=== PATIENT | female | born 1955 | race Caucasian/White ===

== ENCOUNTER 2016-10-11 11:09 | Day surgery (SDC) | payer BC, OTHER ==
[~2016-10-11 11:09] MED LIST: PROPOFOL INJ 200 MG/20 ML VIAL IV ONE
[2016-10-11] MEDS ORDERED: PROPOFOL INJ 200 MG/20 ML VIAL IV ONE (12:11)
[2016-10-11 13:17] VITALS: BP 143/74
--- NOTE | 2016-10-11 13:34 | Operative Report ---
Operative Report DATE OF SURGERY: 10/11/16 Operative Report: The risks benefits and alternatives of the procedure explained to the patient in detail and informed consent is obtained that GIF Olympus video scope was inserted into the patient's mouth and hypopharynx the esophagus is identified intubated and insufflated the scope was then advanced through the esophagus stomach and duodenum retroflexion maneuver is done the esophagus stomach and first and second portions of the duodenum examined PREOPERATIVE DIAGNOSIS: Gastroesophageal reflux disease, nausea, dyspepsia POSTOPERATIVE DIAGNOSIS: Possible Etelvina esophagitis status post brushing. Hiatal hernia. Gastritis status post biopsy rule out Helicobacter pylori. Benign gastric polyps, likely fundic gland polyps. OPERATION: EGD with biopsy SURGEON: AMARJIT SORIANO ANESTHESIA: LMAC TISSUE REMOVED OR ALTERED: Gastric specimen obtained as noted above COMPLICATIONS: None. ESTIMATED BLOOD LOSS: none. INTRAOPERATIVE FINDINGS: Normal esophagus. Brushings obtained for white plaque that's present rule out Etelvina esophagitis. No strictures noted. Gastritis is noted. Gastric polyps likely fundic gland polyps. Normal duodenum PROCEDURE: Patient tolerated the procedure well. No immediate postprocedure complications are noted. Patient is discharged in good condition. Discharge date 10/11/2016. Discharge diet: Regular. Discharge activity: Regular. 2-3 week follow-up to discuss findings. We'll await on biopsies. Patient is instructed to call the office or proceed to the emergency room should there be any further problems or questions.
== END 2016-10-11 13:25 | disposition home or self-care (01) ==
LOC: END 11:09
PROVIDERS: ATTEND Internal Medicine Gastroenterology
PROC: 0DB68ZX Excision of Stomach, Via Natural or Artificial Opening Endoscopic, Diagnostic (ICD-10-PCS; principal; 2016-10-11 11:30)
DX: K21.9 Gastro-esophageal reflux disease without esophagitis (principal); K29.50 Unspecified chronic gastritis without bleeding; K44.9 Diaphragmatic hernia without obstruction or gangrene; Z88.5 Allergy status to narcotic agent; E66.9 Obesity, unspecified; Z68.30 Body mass index [BMI] 30.0-30.9, adult; Z79.899 Other long term (current) drug therapy
CPT/HCPCS: 43239; 87101; 88342 ×2; 88305 ×2; J2704; 43235; 740

== ENCOUNTER 2016-10-26 14:39 | Emergency (ER) | payer BC ==
[2016-10-26] MEDS ORDERED: METOCLOPRAMIDE HCL INJ/PF 10 MG/2 ML SDV IV ONE (15:10)
[2016-10-26] MEDS ORDERED: NORMAL SALINE 1000 ML 1,000 ML IV PRN (15:10)
[2016-10-26] MEDS ORDERED: DIPHENHYDRAMINE HCL 50 MG/ML VIAL IV ONE (15:10)
--- NOTE | 2016-10-26 15:11 | ER Document Report ---
ED Medical Screen (RME) - General Chief Complaint: Nausea Stated Complaint: STOMACH PROBLEM Time seen by provider: 15:11 Mode of Arrival: Ambulatory Information source: Patient Notes: This is a 61-year-old female that presents to the emergency room with multiple episodes of vomiting. Patient has had a recent GI workup with Dr. Cm and was actually sent from his office because of persistent vomiting. Dr Cm states that the pathology of the EGD revealed some maite. He did say that he saw some as well during the scope so he she may have esophageal candidiasis. (rec: Nystatin swish and swallow). TRAVEL OUTSIDE OF THE [place] IN LAST 30 DAYS: No - Related Data Allergies/Adverse Reactions: codeine Allergy (Verified 10/26/16 15:05) N/V Past Medical History - Past Medical History Cardiac Medical History: Denies: Hx Coronary Artery Disease, Hx Heart Attack, Hx Hypertension Pulmonary Medical History: Denies: Hx Asthma, Hx Bronchitis Neurological Medical History: Denies: Hx Seizures Renal/ Medical History: Denies: Hx Peritoneal Dialysis Musculoskeltal Medical History: Denies Hx Arthritis - Immunizations Hx Diphtheria, Pertussis, Tetanus Vaccination: Yes Physical Exam - Vital signs Vitals: Temp Pulse Resp BP Pulse Ox 98.3 F 84 16 136/72 H 100 10/26/16 14:51 10/26/16 14:51 10/26/16 14:51 10/26/16 14:51 10/26/16 14:51 Course - Vital Signs Vital signs: Temp Pulse Resp BP Pulse Ox 98.3 F 84 16 136/72 H 100 10/26/16 14:51 10/26/16 14:51 10/26/16 14:51 10/26/16 14:51 10/26/16 14:51
[2016-10-26 15:55] LABS: ABSOLUTE BASOPHILS # (AUTO) 0.1 10^3/uL (0.0-0.2); ABSOLUTE EOSINOPHILS # (AUTO) 0.1 10^3/uL (0.0-0.6); ABSOLUTE LYMPHOCYTES (AUTO) 0.9 10^3/uL (0.5-4.7); ABSOLUTE MONOCYTES (AUTO) 0.5 10^3/uL (0.1-1.4); ABSOLUTE NEUT (AUTO) 5.5 10^3/uL (1.7-8.2); EOSINOPHILS % (AUTO) 0.8 % (0-6); HEMOGLOBIN 15.1 g/dL (12.0-15.5); HGB HCT DIFFERENCE 1.3; LYMPHOCYTES % (AUTO) 13.3 % (13-45); MEAN CORPUSCULAR HEMOGLOBIN 29.1 pg (27.0-33.4); MEAN CORPUSCULAR HGB CONC 34.4 g/dL (32.0-36.0); MEAN CORPUSCULAR VOLUME 85 fl (80-97); MONOCYTES % (AUTO) 6.5 % (3-13); RED BLOOD COUNT 5.18 10^6/uL (3.72-5.28); RED CELL DISTRIBUTION WIDTH 14.6 % (11.5-14.0); SEGMENTED NEUTROPHILS % (AUTO) 78.4 % (42-78)
[2016-10-26 16:02] LABS: PROTHROMBIN TIME 12.6 SEC (11.4-15.4)
[2016-10-26 16:22] LABS: ALANINE AMINOTRANSFERASE 26 U/L (9-52); ALBUMIN 4.6 g/dL (3.5-5.0); ALKALINE PHOSPHATASE 101 U/L (38-126); ANION GAP 15 (5-19); ASPARTATE AMINO TRANSFERASE 20 U/L (14-36); BILIRUBIN,DIRECT 0.3 mg/dL (0.0-0.4); BILIRUBIN,TOTAL 0.9 mg/dL (0.2-1.3); BLOOD UREA NITROGEN 14 mg/dL (7-20); CALCIUM 10.4 mg/dL (8.4-10.2); CARBON DIOXIDE 23 mmol/L (22-30); CHLORIDE 103 mmol/L (98-107); CREATINE KINASE 66 U/L (30-135); CREATININE RESULT 0.86 mg/dL (0.52-1.25); GLUCOSE 98 mg/dL (75-110); LIPASE 53.4 U/L (23-300); POTASSIUM 4.4 mmol/L (3.6-5.0); SODIUM 140.6 mmol/L (137-145); TOTAL PROTEIN 8.1 g/dL (6.3-8.2)
[2016-10-26 16:33] LABS: CREATINE KINASE MB 0.89 ng/mL (<4.55)
[2016-10-26 16:34] LABS: TROPONIN I < 0.012 ng/mL
--- NOTE | 2016-10-26 18:39 | ER Document Report ---
ED General - General Chief Complaint: Nausea Stated Complaint: STOMACH PROBLEM Mode of Arrival: Ambulatory Information source: Patient Notes: 61-year-old female presents with complaints of intermittent fevers nausea. Patient admits to having 5 days worth of this episode in June and then another 5 days worth in July, patient does not actually take her temperature notes she feels hot and cold. 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 Sent in for evaluation. TRAVEL OUTSIDE OF THE [place] IN LAST 30 DAYS: No - HPI Onset: Other Onset/Duration: Intermittent Quality of pain: No pain Severity: Mild Pain Level: Denies Associated symptoms: Nausea, Weakness Exacerbated by: Denies Relieved by: Denies Similar symptoms previously: Yes Recently seen / treated by doctor: Yes - Related Data Allergies/Adverse Reactions: codeine Allergy (Verified 10/26/16 15:05) N/V Past Medical History - General Information source: Patient - Social History Smoking Status: Never Smoker Cigarette use (# per day): No Chew tobacco use (# tins/day): No Smoking Education Provided: No Family History: Reviewed & Not Pertinent Patient has suicidal ideation: No Patient has homicidal ideation: No - Past Medical History Cardiac Medical History: Denies: Hx Coronary Artery Disease, Hx Heart Attack, Hx Hypertension Pulmonary Medical History: Denies: Hx Asthma, Hx Bronchitis Neurological Medical History: Denies: Hx Seizures Renal/ Medical History: Denies: Hx Peritoneal Dialysis Musculoskeltal Medical History: Denies Hx Arthritis - Immunizations Hx Diphtheria, Pertussis, Tetanus Vaccination: Yes Review of Systems - Review of Systems Notes: REVIEW OF SYSTEMS: CONSTITUTIONAL : Denies fever, chills, or sweats. Denies recent illness. EENT: Denies eye, ear, throat, or mouth pain or symptoms. Denies nasal or sinus congestion or discharge. Denies throat, tongue, or mouth swelling or difficulty swallowing. CARDIOVASCULAR: Denies chest pain. Denies palpitations or racing or irregular heart beat. Denies ankle edema. RESPIRATORY: Denies cough, cold, or chest congestion. Denies shortness of breath, difficulty breathing, or wheezing. GASTROINTESTINAL: Admits to nausea GENITOURINARY: Denies difficulty urinating, painful urination, burning, frequency, blood in urine, or discharge. FEMALE GENITOURINARY: Denies vaginal bleeding, heavy or abnormal periods, irregular periods. Denies vaginal discharge or odor. MUSCULOSKELETAL: Denies back or neck pain or stiffness. Denies joint pain or swelling. SKIN: Denies rash, lesions or sores. HEMATOLOGIC : Denies easy bruising or bleeding. LYMPHATIC: Denies swollen, enlarged glands. NEUROLOGICAL: Denies confusion or altered mental status. Denies passing out or loss of consciousness. Denies dizziness or lightheadedness. Denies headache. Denies weakness or paralysis or loss of use of either side. Denies problems with gait or speech. Denies sensory loss, numbness, or tingling. Denies seizures. PSYCHIATRIC: Denies anxiety or stress. Denies depression, suicidal ideation, or homicidal ideation. ALL OTHER SYSTEMS REVIEWED AND NEGATIVE. Dictation was performed using [employer] voice recognition software PHYSICAL EXAMINATION: GENERAL: Well-appearing, well-nourished and in no acute distress. HEAD: Atraumatic, normocephalic. EYES: Pupils equal round and reactive to light, extraocular movements intact, conjunctiva are normal. ENT: Nares patent, oropharynx clear without exudates. Moist mucous membranes. NECK: Normal range of motion, supple without lymphadenopathy LUNGS: Breath sounds clear to auscultation bilaterally and equal. No wheezes rales or rhonchi. HEART: Regular rate and rhythm without murmurs ABDOMEN: Soft, nontender, nondistended abdomen. No guarding, no rebound. No masses appreciated. Female : deferred Musculoskeletal: Normal range of motion, no pitting or edema. No cyanosis. NEUROLOGICAL: Cranial nerves grossly intact. Normal speech, normal gait. Normal sensory, motor exams PSYCH: Normal mood, normal affect. SKIN: Warm, Dry, normal turgor, no rashes or lesions noted. Physical Exam - Vital signs Vitals: Temp Pulse Resp BP Pulse Ox 98.3 F 84 16 136/72 H 100 10/26/16 14:51 10/26/16 14:51 10/26/16 14:51 10/26/16 14:51 10/26/16 14:51 Course - Re-evaluation Re-evalutation: 10/26/16 18:34 Laboratory notes no significant abnormality patient vital signs are stable she looks well. Patient will be treated for the candidiasis, will be given nausea control, and will be given hematology follow-up for fevers of unknown origin Patient has no specific complaints no pain anywhere After performing a Medical Screening Examination, I estimate there is LOW risk for ACUTE APPENDICITIS, BOWEL OBSTRUCTION, ACUTE CHOLECYSTITIS, PERFORATED DIVERTICULITIS, INCARCERATED HERNIA, PANCREATITIS, PELVIC INFLAMMATORY DISEASE, PERFORATED ULCER, ECTOPIC , or TUBO-OVARIAN ABSCESS, thus I consider the discharge disposition reasonable. Also, there is no evidence or peritonitis , sepsis, or toxicity. I have reevaluated this patient multiple times and no significant life threatening changes are noted. The patient and I have discussed the diagnosis and risks, and we agree with discharging home with close follow-up with the understanding that symptoms and presentations can change. We also discussed returning to the Emergency Department immediately if new or worsening symptoms occur. We have discussed the symptoms which are most concerning (e.g., bloody stool, fever, changing or worsening pain, vomiting) that necessitate immediate return. - Vital Signs Vital signs: Temp Pulse Resp BP Pulse Ox 98.3 F 84 16 136/72 H 100 10/26/16 14:51 10/26/16 14:51 10/26/16 14:51 10/26/16 14:51 10/26/16 14:51 - Laboratory Result Diagrams: 10/26/16 15:35 10/26/16 15:35 Laboratory results interpreted by me: 10/26/16 10/26/16 15:35 15:35 RDW 14.6 H Seg Neutrophils % 78.4 H Calcium 10.4 H Discharge - Discharge Clinical Impression: Fever and chills, Nausea, Esophageal candidiasis Condition: Stable Disposition: HOME, SELF-CARE Instructions: Fever ([facility]) Prescriptions: Nystatin [Mycostatin 500,000 Unit/5 ml Susp Udcup] 500,000 unit PO QID 14 Days Promethazine HCl [Phenergan 25 mg Tablet] 1 - 2 tab PO Q6H PRN #15 tablet PRN Reason: Referrals: AMARJIT SORIANO MD [Primary Care Provider] - Follow up as needed MIKE CERVANTES MD [ACTIVE STAFF] - Follow up tomorrow
[2016-10-26 18:56] VITALS: BP 132/70
--- NOTE | 2016-10-26 19:07 | EKG REPORT ---
SEVERITY:- ABNORMAL ECG - SINUS RHYTHM LVH BY VOLTAGE CONSIDER ANTERIOR INFARCT LA ABNORMALITY. : Confirmed by: Efren Tucker MD 26-Oct-2016 19:06:17
== END 2016-10-26 18:55 | disposition home or self-care (01) ==
LOC: ER 14:39
DX: B37.81 Candidal esophagitis (principal); R50.9 Fever, unspecified; R11.0 Nausea; R53.1 Weakness; Z88.5 Allergy status to narcotic agent
CPT/HCPCS: 93005; 99284; 96361; 96374; 96375; 36415; 82553; 82550; 83690; 85025; 85610; 80053; 84484; 74022; 93010; J1200; J2765; J7030

== ENCOUNTER 2016-11-08 09:35 | Day surgery (SDC) | payer BC ==
[2016-11-08 12:11] VITALS: BP 114/64
--- NOTE | 2016-11-08 14:31 | Operative Report ---
Operative Report DATE OF SURGERY: 11/08/16 Operative Report: The risks, benefits and alternatives of the procedure including risks of bleeding, perforation requiring surgery are explained to the patient detail and informed consent is obtained. Patient is taken back to the endoscopy suite and placed in the left, lateral decubital position. A rectal examination was done which did not reveal any masses, tears or fissures. Timeout is called. Propofol medications administered. An Olympus was scope is inserted patient's rectum. The scope was then gradually advanced all the way to the cecum. The cecum was identified by the usual anatomical landmarks including the ileocecal valve as well as the appendiceal office. Photodocumentation was obtained. The scope was then sequentially pulled back via the rest segments of the colon including the ascending colon, hepatic flexure, transverse colon, splenic flexure, descending colon and finally into the rectosigmoid portions of the colon. Retroflexion maneuvers performed. Prep is very poor. Solid fecal material was present. PREOPERATIVE DIAGNOSIS: Personal history of polyps. Change of bowel habits POSTOPERATIVE DIAGNOSIS: Internal hemorrhoids. Random biopsies obtained OPERATION: Colonoscopy with biopsy SURGEON: AMARJIT SORIANO ANESTHESIA: LMAC TISSUE REMOVED OR ALTERED: Colon mucosal specimen obtained COMPLICATIONS: None. ESTIMATED BLOOD LOSS: none. INTRAOPERATIVE FINDINGS: Prep is very poor, solid fecal material still present, good visualization cannot be done, we'll need to have alternative prep and reschedule procedure PROCEDURE: Patient tolerated procedure well No immediate postprocedure complications are noted. Patient is discharged in good condition. Discharge date 11/08/2016. Discharge diet: Regular. Discharge activity: Regular. We'll reschedule colonoscopy with better prep Patient is instructed to call the office or proceed to the emergency room should there be any further polyps or questions. We'll await on biopsies.
== END 2016-11-08 11:55 | disposition home or self-care (01) ==
LOC: END 09:35
PROVIDERS: ATTEND Internal Medicine Gastroenterology
PROC: 0DBF8ZX Excision of Right Large Intestine, Via Natural or Artificial Opening Endoscopic, Diagnostic (ICD-10-PCS; principal; 2016-11-08 12:30)
DX: K64.8 Other hemorrhoids (principal); Z86.010 Personal history of colon polyps; R19.4 Change in bowel habit; K21.9 Gastro-esophageal reflux disease without esophagitis; E66.9 Obesity, unspecified; F90.0 Attention-deficit hyperactivity disorder, predominantly inattentive type; F32.9 Major depressive disorder, single episode, unspecified; F43.20 Adjustment disorder, unspecified; J30.2 Other seasonal allergic rhinitis; Z88.5 Allergy status to narcotic agent; Z79.899 Other long term (current) drug therapy; Z68.30 Body mass index [BMI] 30.0-30.9, adult
CPT/HCPCS: 45380; 88305 ×2; J2704; 810

== ENCOUNTER 2016-11-15 06:53 | Day surgery (SDC) | payer BC ==
[2016-11-15] MEDS ORDERED: PROPOFOL INJ 200 MG/20 ML VIAL IV ONE (07:22)
[2016-11-15 08:57] VITALS: BP 131/72
--- NOTE | 2016-11-15 13:44 | Operative Report ---
Operative Report DATE OF SURGERY: 11/15/16 Operative Report: The risks, benefits and alternatives of the procedure including risks of bleeding, perforation requiring surgery are explained to the patient detail and informed consent was obtained. Patient was taken back to the endoscopy suite and placed in the left, lateral decubital position. Timeout was called. Propofol medications administered. A rectal examination was done which did not reveal any masses, tears or fissures. An Olympus spelled scope was inserted in the patient's rectum. It is gradually advanced all the way to the cecum. The cecum was identified by the usual anatomical landmarks of the ileocecal valve as well as the appendiceal office. Photodocumentation is obtained. Prep is much better at this time. A previous attempted colonoscopy could not be completed because of the prep approximately a week ago. The scope was then carefully withdrawn from the area of the cecum including the ascending colon, hepatic flexure, transverse colon, descending colon, sigmoid colon and finding to the rectosigmoid portions of the colon. Retroflexion maneuver was performed. PREOPERATIVE DIAGNOSIS: Chronic constipation, change in bowel habits POSTOPERATIVE DIAGNOSIS: Right side colon inflammation status post biopsy. Internal hemorrhoids OPERATION: Colonoscopy with biopsy SURGEON: AMARJIT SORIANO ANESTHESIA: Moderate Sedation TISSUE REMOVED OR ALTERED: As described above COMPLICATIONS: None. ESTIMATED BLOOD LOSS: None. INTRAOPERATIVE FINDINGS: As described above. PROCEDURE: Patient tolerated procedure well. No immediate postprocedure complications are noted. Patient discharged in good condition. Discharge date 11/15/2016. Discharge diet: Regular. Discharge activity: Regular. 2-3 week follow-up to discuss findings. Patient is instructed to call the office or proceed to the emergency room should there be any further problems or questions. We will wait on pathology.
== END 2016-11-15 08:54 | disposition home or self-care (01) ==
LOC: END 06:53
PROVIDERS: ATTEND Internal Medicine Gastroenterology
PROC: 0DBF8ZX Excision of Right Large Intestine, Via Natural or Artificial Opening Endoscopic, Diagnostic (ICD-10-PCS; principal; 2016-11-15 08:30)
DX: K63.5 Polyp of colon (principal); K52.9 Noninfective gastroenteritis and colitis, unspecified; K64.8 Other hemorrhoids; E66.9 Obesity, unspecified; Z79.899 Other long term (current) drug therapy; Z79.1 Long term (current) use of non-steroidal anti-inflammatories (NSAID); Z88.5 Allergy status to narcotic agent; Z68.30 Body mass index [BMI] 30.0-30.9, adult
CPT/HCPCS: 45380; 88305 ×2; J2704; 810

== ENCOUNTER → 2016-11-18 | Outpatient (CLI) | payer BC ==
--- NOTE | 2016-11-18 12:17 | RADIOLOGY REPORT (SQ) ---
EXAM DESCRIPTION: CT ABD/PELVIS WITH IV ORAL COMPLETED DATE/TIME: 11/18/2016 9:26 am REASON FOR STUDY: ABD AND PELVIC PAIN R10.9 UNSPECIFIED ABDOMINAL PAIN COMPARISON: None. TECHNIQUE: CT scan of the abdomen and pelvis performed using helical scanning technique with dynamic intravenous contrast injection. Oral contrast. Images reviewed with lung, soft tissue, and bone win dows. Reconstructed coronal and sagittal MPR images reviewed. Delayed images for evaluation of the ur inary system also acquired. All images stored on PACS. All CT scanners at this facility use dose modulation, iterative reconstruction, and/or weight based d osing when appropriate to reduce radiation dose to as low as reasonably achievable (ALARA). [facility]: Dose Right [facility]: CareDose [facility]: Dose Right [facility]: Teradose 4D [facility]: [employer]ni [employer] CONTRAST TYPE AND DOSE: 85mL Isovue 370- low osmolar. RENAL FUNCTION: Creatinine 1.0 BUN 9 RADIATION DOSE: 19.30mGy. LIMITATIONS: None. FINDINGS: LOWER CHEST: Prominent hiatal hernia. No other significant findings. No nodules or infilt rates. LIVER: Normal size. No masses or dilated ducts. SPLEEN: Normal size. No focal lesions. PANCREAS: No masses. No significant calcifications. No adjacent inflammation or peripancreatic fluid collections. Pancreatic duct not dilated. GALLBLADDER: No identified stones by CT criteria. No inflammatory changes to suggest cholecystitis. ADRENAL GLANDS: No significant masses or asymmetry. RIGHT KIDNEY AND URETER: No solid masses. No significant calcifications. No hydronephrosis or hyd roureter. LEFT KIDNEY AND URETER: No solid masses. No significant calcifications. No hydronephrosis or hydr oureter. AORTA AND VESSELS: No aneurysm. No dissection. Renal arteries, SMA, celiac without stenosis. RETROPERITONEUM: No retroperitoneal adenopathy, hemorrhage or masses. BOWEL AND PERITONEAL CAVITY: No masses or inflammatory changes. No free fluid or peritoneal masses. APPENDIX: Normal. PELVIS: No mass or free fluid. Normal bladder. ABDOMINAL WALL: No masses. No hernias. BONES: No significant or acute findings. OTHER: No other significant finding. IMPRESSION: 1. Hiatal hernia. 2. No abnormality is seen in the abdomen or pelvis. There are no findings that explain the patient' s pain. TECHNICAL DOCUMENTATION: JOB ID: [id number] Quality ID # [id number]: Final reports with documentation of one or more dose reduction techniques (e.g., Au tomated exposure control, adjustment of the mA and/or kV according to patient size, use of iterative reconstruction technique) 2010 [employer]- All Rights Reserved
== END ==
LOC: RAD 08:30
PROVIDERS: ATTEND Internal Medicine Medical Oncology
DX: R10.9 Unspecified abdominal pain (principal); R10.2 Pelvic and perineal pain
CPT/HCPCS: 74177

== ENCOUNTER → 2017-03-31 | Outpatient (CLI) | payer BC ==
--- NOTE | 2017-04-01 16:46 | WOMENS IMAGING REPORT ---
EXAM DESCRIPTION: 3D SCREENING MAMMO BILAT COMPLETED DATE/TIME: 03/31/2017 7:53 am REASON FOR STUDY: SCREENING MAMMO Z12.31 ENCNTR SCREEN MAMMOGRAM FOR MALIGNANT NEOPLASM OF PRIYANKA COMPARISON: Multiple since 2007 TECHNIQUE: Standard craniocaudal and mediolateral oblique views of each breast recorded using digita l acquisition and breast tomosynthesis. LIMITATIONS: None. FINDINGS: No masses, calcifications or architectural distortion. No areas of suspicion. Read with the assistance of CAD. .[facility] - R2 Cenova Version 1.3 .[facility] - R2 Cenova Version 1.3 .[facility] - R2 Cenova Version 2.4 .[facility] [place] - R2 Cenova Version 2.4 .[facility] - R2 [employer] Version 9.2 IMPRESSION: NORMAL MAMMOGRAM. BIRADS 1. BREAST DENSITY: c. The breasts are heterogeneously dense, which may obscure small masses. BIRAD: 1 NEGATIVE RECOMMENDATION: ROUTINE SCREENING Please continue yearly bilateral screening tomosynthesis in March 2018. COMMENT: The patient has been notified of the results by letter per [place] requirements. Additional no tification policies are in place for contacting patient with suspicious or incomplete findings. Quality ID #[id number]: The [employer] recommends an annual screening mammogram for women aged 40 years or over. This facility utilizes a reminder system to ensure that all patients receive reminder letters, and/or direct phone calls for appointments. This includes reminders for routine scr eening mammograms, diagnostic mammograms, or other Breast Imaging Interventions when appropriate. Th is patient will be placed in the appropriate reminder system. The [employer] (ACR) has developed recommendations for screening MRI of the breast s in certain patient populations, to be used in conjunction with mammography. Breast MRI surveillanc e may be appropriate for women with more than 20% lifetime risk of developing breast cancer as deter mined by genetic testing, significant family history of the disease, or history of mantle radiation f or Hodgkins Disease. ACR Practice Guidelines 2008. DBT Technology DBT is a type of tomographic mammography. With conventional mammography, overlapping breast tissue ma y make lesions difficult to detect, even with good compression. DBT uses an x-ray tube that rotates a round the breast, taking images at different angles. These images are then combined to create thin sl ices of the breast that the radiologist can view as a 3D reconstruction. The [employer] unit can perform full-field digital mammograms (2D imaging); or DBT (3D imaging); or both, in a combination mode that quickly performs both the mammogram and the tomosynthesis scan while the breast is still compressed. PQRS 6045F: Fluoroscopic imaging is not utilized for breast tomosynthesis. TECHNICAL DOCUMENTATION: FINDING NUMBER: (1) ASSESSMENT: (1) JOB ID: [id number] 2699 [employer]- All Rights Reserved
== END ==
LOC: WI 07:21
PROVIDERS: ATTEND Obstetrics & Gynecology Gynecology
DX: Z12.31 Encounter for screening mammogram for malignant neoplasm of breast (principal)
CPT/HCPCS: 77063; G0202; 77067

== ENCOUNTER 2017-05-26 10:10 | Day surgery (SDC) | payer BC ==
[2017-05-26] MEDS ORDERED: PROPOFOL INJ 200 MG/20 ML VIAL IV ONE (13:00)
[2017-05-26 14:52] VITALS: BP 154/73
--- NOTE | 2017-05-26 16:42 | Operative Report ---
Operative Report DATE OF SURGERY: 05/26/17 Operative Report: The risks benefits and alternatives of the procedure explained to the patient in detail and informed consent is obtained.A GIF Olympus video scope was inserted into the patient's mouth and hypopharynx, the esophagus is identified intubated and insufflated, the scope was then advanced through the esophagus stomach and duodenum, retroflexion maneuver is done ,the esophagus stomach and first and second portions of the duodenum examined PREOPERATIVE DIAGNOSIS: Anemia that could be due to blood loss. Gastroesophageal reflux disease POSTOPERATIVE DIAGNOSIS: Small shallow gastric ulcers, gastritis. Gastric polyp which was removed via snare polypectomy and retrieved. Duodenitis. Biopsies obtained to rule out for Helicobacter pylori OPERATION: EGD with snare polypectomy SURGEON: AMARJIT SORIANO ANESTHESIA: LMAC TISSUE REMOVED OR ALTERED: As noted above. COMPLICATIONS: None. ESTIMATED BLOOD LOSS: None. INTRAOPERATIVE FINDINGS: As described above. No significant bleeding occurring. PROCEDURE: Patient tolerated procedure well. No immediate postprocedure complications are noted. Patient is discharged in good condition. Discharge date 05/26/2017. Discharge diet: Regular. Discharge activity: Regular. 2-3 week follow-up to discuss findings. Patient is instructed call the office or proceed to the emergency room should there be any further problems or questions. I started her on oral iron therapy. Continue her PPI She has had a negative colonoscopy in the past We will refer her to hematology oncology workup for other reasons for why she could have chronic anemia
== END 2017-05-26 14:45 | disposition home or self-care (01) ==
LOC: OROUT 10:10
PROVIDERS: ATTEND Internal Medicine Gastroenterology
PROC: 0DB68ZX Excision of Stomach, Via Natural or Artificial Opening Endoscopic, Diagnostic (ICD-10-PCS; principal; 2017-05-26 13:00)
DX: D50.0 Iron deficiency anemia secondary to blood loss (chronic) (principal); K21.9 Gastro-esophageal reflux disease without esophagitis; K31.7 Polyp of stomach and duodenum; K29.80 Duodenitis without bleeding; K29.70 Gastritis, unspecified, without bleeding; K25.9 Gastric ulcer, unspecified as acute or chronic, without hemorrhage or perforation; Z79.899 Other long term (current) drug therapy
CPT/HCPCS: 43251; 88342 ×2; 88305 ×2; J2704; 740

== ENCOUNTER 2017-06-17 08:20 | Day surgery (SDC) | payer BC ==
[2017-06-17] MEDS ORDERED: PROPOFOL INJ 200 MG/20 ML VIAL IV ONE (09:54)
--- NOTE | 2017-06-17 12:32 | Operative Report ---
Operative Report DATE OF SURGERY: 06/17/17 Operative Report: The risks, benefits and alternatives of the procedure including risks of bleeding, perforation requiring surgery are explained to the patient in detail and informed consent is obtained. Patient was taken back to the operating room and placed in a left, lateral decubital position. Timeout was called. Propofol medications administered. A rectal examination is done which did not reveal any masses, tears or fissures. An Olympus videoscope was inserted into the patient's rectum. The scope was then carefully advanced all the way to the cecum. Intubation of the normal terminal ileum is done. Prep is good. Photodocumentation is obtained. Scope was then sequentially pulled back via the various segments of the colon including the ascending colon, hepatic flexure , transverse colon, splenic flexure, descending colon and finding to the rectosigmoid portions of the colon. Retroflexion maneuvers performed. PREOPERATIVE DIAGNOSIS: Chronic anemia rule out GI bleed POSTOPERATIVE DIAGNOSIS: Relatively normal colonoscopy by right side colon biopsies are taken to rule out for possible microscopic colitis as evidence for possible bleeding OPERATION: Colonoscopy with biopsy SURGEON: AMARJIT SORIANO ANESTHESIA: LMAC TISSUE REMOVED OR ALTERED: As noted above. COMPLICATIONS: None. ESTIMATED BLOOD LOSS: None. INTRAOPERATIVE FINDINGS: As described above. PROCEDURE: Patient tolerated procedure well. No immediate postprocedure complications are noted. Patient discharged in good condition. Discharge date 06/17/2017. Discharge diet: Regular. Discharge activity: Regular. 2-3 week follow-up to discuss findings. Patient is instructed to call the office or proceed to the emergency room should there be any further problems or questions. We will await pathology. Do not see any lesion in the colon is bleeding.
[2017-06-17 12:39] VITALS: BP 138/68
== END 2017-06-17 12:39 | disposition home or self-care (01) ==
LOC: OROUT 08:20
PROVIDERS: ATTEND Internal Medicine Gastroenterology
PROC: 0DBF8ZX Excision of Right Large Intestine, Via Natural or Artificial Opening Endoscopic, Diagnostic (ICD-10-PCS; principal; 2017-06-17 10:30)
DX: D50.0 Iron deficiency anemia secondary to blood loss (chronic) (principal); Z88.5 Allergy status to narcotic agent; Z88.8 Allergy status to other drugs, medicaments and biological substances
CPT/HCPCS: 45380; 88305 ×2; J2704; 810

== ENCOUNTER 2018-09-08 07:57 | Day surgery (SDC) | payer BC ==
[~2018-09-08 07:57] MED LIST changes: +MIDAZOLAM 2 MG/2 ML INJ ONE
[2018-09-08 11:09] VITALS: BP 131/72
--- NOTE | 2018-09-08 12:34 | Operative Report ---
Operative Report DATE OF SURGERY: 09/08/18 Operative Report: The risks benefits and alternatives of the procedure explained to the patient in detail and informed consent is obtained.A GIF Olympus video scope was inserted into the patient's mouth and hypopharynx, the esophagus is identified intubated and insufflated, the scope was then advanced through the esophagus stomach and duodenum, retroflexion maneuver is done, the esophagus stomach and first and second portions of the duodenum examined. PREOPERATIVE DIAGNOSIS: Possible GI bleeding, chronic anemia POSTOPERATIVE DIAGNOSIS: There is a new area of thickening at the distal EG junction status post biopsy rule out Tena's esophagus. Gastritis status post biopsy rule out Helicobacter pylori. Hiatal hernia. No evidence of source of bleed OPERATION: EGD with biopsy SURGEON: AMARJIT SORIANO ANESTHESIA: LMAC TISSUE REMOVED OR ALTERED: As noted above. COMPLICATIONS: None. ESTIMATED BLOOD LOSS: None. INTRAOPERATIVE FINDINGS: As noted above. PROCEDURE: Patient tolerated the procedure well. No immediate postprocedure complications are noted. Patient discharged in good condition. Discharge date 09/08/2018. Discharge diet: Regular. Discharge activity: Regular. 2-3-week follow-up to discuss findings. Patient is instructed to call the office or proceed to the emergency room should there be any further proximal questions. Depending on the pathology further recommendations can be made. However if there does appear to be dysplasia the question of whether she will need endoscopic ultrasound as a further workup.
== END 2018-09-08 11:00 | disposition home or self-care (01) ==
LOC: OROUT 07:57
PROVIDERS: ATTEND Internal Medicine Gastroenterology
DX: K44.9 Diaphragmatic hernia without obstruction or gangrene (principal); K29.50 Unspecified chronic gastritis without bleeding; K20.9 Esophagitis, unspecified; K92.1 Melena; D64.9 Anemia, unspecified; Z88.5 Allergy status to narcotic agent; Z88.6 Allergy status to analgesic agent
CPT/HCPCS: 43239; 88342 ×2; 88305 ×2; J2250; J2704; 731

== ENCOUNTER 2018-11-17 07:12 | Day surgery (SDC) | payer BC ==
[2018-11-17] MEDS ORDERED: PROPOFOL INJ 200 MG/20 ML VIAL IV ONE ×2 (08:08→10:11)
[2018-11-17 08:53] VITALS: BP 116/59
--- NOTE | 2018-11-17 12:24 | Operative Report ---
Operative Report DATE OF SURGERY: 11/17/18 Operative Report: The risks benefits and alternatives of the procedure explained to the patient in detail and informed consent is obtained.A GIF Olympus video scope was inserted into the patient's mouth and hypopharynx, the esophagus is identified intubated and insufflated, the scope was then advanced through the esophagus stomach and duodenum ,retroflexion maneuver is done, the esophagus stomach and first and second portions of the duodenum examined. PREOPERATIVE DIAGNOSIS: Known history of a gastric polyp previously biopsied that was negative within the hiatal hernia sac now for snare polypectomy POSTOPERATIVE DIAGNOSIS: Polyp removed via snare polypectomy and retrieved with Bolanos net. Hiatal hernia. Gastritis OPERATION: EGD with snare polypectomy SURGEON: AMARJIT SORIANO ANESTHESIA: LMAC TISSUE REMOVED OR ALTERED: As noted above. COMPLICATIONS: None. ESTIMATED BLOOD LOSS: None. INTRAOPERATIVE FINDINGS: As noted above. PROCEDURE: Patient tolerated the procedure well. No immediate postprocedure complications are noted. Patient is discharged in good condition. Discharge date 11/17/2018. Discharge diet: Regular. Discharge activity: Regular. 2 to 3-week follow-up to discuss findings. Patient is instructed to call the office or proceed to the emergency room should there be any further problems or questions. Wait on the pathology.
== END 2018-11-17 08:28 | disposition home or self-care (01) ==
LOC: END 07:12
PROVIDERS: ATTEND Internal Medicine Gastroenterology
DX: K31.7 Polyp of stomach and duodenum (principal); K44.9 Diaphragmatic hernia without obstruction or gangrene; K29.50 Unspecified chronic gastritis without bleeding; K21.9 Gastro-esophageal reflux disease without esophagitis; Z79.899 Other long term (current) drug therapy
CPT/HCPCS: 43251; 88342 ×2; 88305 ×2; J2704

== ENCOUNTER → 2018-12-08 | Outpatient (CLI) | payer BC ==
--- NOTE | 2018-12-08 11:53 | RADIOLOGY REPORT (SQ) ---
EXAM DESCRIPTION: UPPER GI/SM BOWEL COMPLETED DATE/TIME: 12/08/2018 10:44 am REASON FOR STUDY: HIATEL HERNIA K44.9 DIAPHRAGMATIC HERNIA WITHOUT OBSTRUCTION OR GANGRENE COMPARISON: None. TECHNIQUE: Under fluoroscopic guidance, patient ingested effervescent granules followed by thick an d thin barium. Fluoroscopic spot images and routine radiographic images acquired and stored on PACS . Following evaluation of esophagus and stomach, additional barium administered with serial delayed ab dominal radiographs until colonic identification. Fluoroscopic images recorded of the terminal ileu m. 12 MM BARIUM TABLET GIVEN: Yes. No significant delay in passage. FLUOROSCOPY TIME: 3 minutes of fluoroscopy was used. 21 images saved to PACS. LIMITATIONS: None. FINDINGS: NEUROMUSCULAR COORDINATION OF SWALLOW: Normal. No aspiration. ESOPHAGEAL MOTILITY: Normal peristalsis. No esophageal spasm. ESOPHAGEAL MUCOSA: Normal mucosa without masses or ulceration. GASTRO-ESOPHAGEAL JUNCTION: Large fixed hiatal hernia containing nearly the entire fundus of the stom ach. Severe free-flowing gastroesophageal reflux is seen. STOMACH: Large hiatal hernia. Normal without masses or ulcerations. GASTRIC OUTLET: No delay in emptying. Normal pylorus. DUODENAL BULB: Normal distention. No spasm or ulceration. DUODENUM: Mucosa normal. No extrinsic masses or malrotation. PROXIMAL SMALL BOWEL: Normal as visualized. JEJUNUM: Normal mucosal pattern. No dilatation, segmentation, strictures or masses. ILEUM: Normal mucosal pattern. No dilatation, segmentation, strictures or masses. TERMINAL ILEUM AND ILEO-CECAL VALVE: Normal mucosal pattern without cobble-stoning or stricture. Nor mal compression. PROXIMAL COLON: Incompletely imaged. No abnormality. NON-GI TRACT STRUCTURES: No significant finding. OTHER: Transit time is normal with contrast visualized in the colon on the 45 minutes delayed image. IMPRESSION: 1. LARGE FIXED HIATAL CONTAINING NEARLY THE ENTIRE FUNDUS OF THE STOMACH. 2. SEVERE FREE-FLOWING GASTROESOPHAGEAL REFLUX TO THE LEVEL OF THE THORACIC INLET. 3. NORMAL SMALL BOWEL FOLLOW-THROUGH. COMMENT: Quality ID [id number]: Final reports for procedures using fluoroscopy that document radiation exp osure indices, or exposure time and number of fluorographic images (if radiation exposure indices are not available) TECHNICAL DOCUMENTATION: JOB ID: [id number] [employer]- All Rights Reserved Reading location - IP/workstation name: [email or web address] [id number]
== END ==
LOC: RAD 08:55
PROVIDERS: ATTEND Surgery
DX: K44.9 Diaphragmatic hernia without obstruction or gangrene (principal); K21.9 Gastro-esophageal reflux disease without esophagitis
CPT/HCPCS: 74249

== ENCOUNTER 2019-02-22 07:47 | Observation (INO) | payer BC ==
[2019-02-15 10:11] LABS: ABSOLUTE BASOPHILS # (AUTO) 0.1 10^3/uL (0.0-0.2); ABSOLUTE EOSINOPHILS # (AUTO) 0.1 10^3/uL (0.0-0.6); ABSOLUTE LYMPHOCYTES (AUTO) 0.9 10^3/uL (0.5-4.7); ABSOLUTE MONOCYTES (AUTO) 0.4 10^3/uL (0.1-1.4); ABSOLUTE NEUT (AUTO) 2.4 10^3/uL (1.7-8.2); BASOPHILS % (AUTO) 2.3 % (0-2); HEMATOCRIT 38.4 % (36.0-47.0); HEMOGLOBIN 12.9 g/dL (12.0-15.5); LYMPHOCYTES % (AUTO) 23.9 % (13-45); MEAN CORPUSCULAR HEMOGLOBIN 29.3 pg (27.0-33.4); MEAN CORPUSCULAR HGB CONC 33.4 g/dL (32.0-36.0); MEAN CORPUSCULAR VOLUME 88 fl (80-97); MONOCYTES % (AUTO) 10.5 % (3-13); PLATELET COUNT 342 10^3/uL (150-450); RED BLOOD COUNT 4.38 10^6/uL (3.72-5.28); RED CELL DISTRIBUTION WIDTH 15.1 % (11.5-14.0); SEGMENTED NEUTROPHILS % (AUTO) 60.3 % (42-78); TOTAL CELLS COUNTED % (AUTO) 100 %
[2019-02-15 10:32] LABS: ANION GAP 7 (5-19); BLOOD UREA NITROGEN 12 mg/dL (7-20); CALCIUM 9.7 mg/dL (8.4-10.2); CARBON DIOXIDE 27 mmol/L (22-30); CHLORIDE 106 mmol/L (98-107); GLUCOSE 79 mg/dL (75-110); POTASSIUM 4.4 mmol/L (3.6-5.0)
--- NOTE | 2019-02-15 20:39 | EKG REPORT ---
SEVERITY:- OTHERWISE NORMAL ECG - SINUS RHYTHM BORDERLINE LEFT AXIS DEVIATION : Confirmed by: Alessia Centeno MD 15-Feb-2019 20:38:00
[~2019-02-22 07:47] MED LIST changes: +BUPIVACAINE HCL 0.25% /EPINEPHRINE INJ/PF 30 ML SDV ONE; +CEFAZOLIN 1 GM/D5W RTU 1 GM/50 ML RTUPB IV ONE; +CEFAZOLIN SODIUM 2 GM in DEXTROSE 5%-WATER 100 ML IV PRN; +FAMOTIDINE INJ/PF 20 MG/2 ML SDV IV ONE; +FAMOTIDINE INJ/PF 20 MG/2 ML SDV IV PRN; +LACTATED RINGERS 1000 ML IV PRN; +LIDOCAINE 0.5% INJ-PF (5 MG/ML) 50 ML SDV SUBCUT PRN; +METHYLENE BLUE 50 MG/10 ML AMPULE ONE; +METOCLOPRAMIDE HCL INJ/PF 10 MG/2 ML SDV IV PRN; +METOCLOPRAMIDE HCL INJ/PF 10 MG/2 ML SDV ONE; -MIDAZOLAM 2 MG/2 ML INJ ONE; -PROPOFOL INJ 200 MG/20 ML VIAL IV ONE; +SCOPOLAMINE HYDROBROMIDE 1.5 MG PATCH.TD72 ONE; +SCOPOLAMINE HYDROBROMIDE 1.5 MG PATCH.TD72 TD PRN
[2019-02-22] MEDS ORDERED: KETOROLAC TROMETHAMINE 60 MG/2 ML SDV ONE (08:40)
[2019-02-22] MEDS ORDERED: DEXAMETHASONE SOD PHOSPHATE INJ 4 MG/1 ML VIAL ONE (08:41)
[2019-02-22] MEDS ORDERED: ONDANSETRON HCL INJ/PF 4 MG/2 ML SDV ONE (08:41)
[2019-02-22] MEDS ORDERED: PROPOFOL INJ 200 MG/20 ML VIAL IV ONE (08:41)
[2019-02-22] MEDS ORDERED: HYDROMORPHONE HCL INJ/PF 2 MG/ML AMPULE ONE (08:41)
[2019-02-22] MEDS ORDERED: MIDAZOLAM 2 MG/2 ML INJ ONE (08:56)
[2019-02-22] MEDS ORDERED: FENTANYL CITRATE INJ/PF 100 MCG/2 ML AMPUL IV PRN ×3 (09:27)
[2019-02-22] MEDS ORDERED: OXYCODONE-ACETAMINOPHEN 5-325 MG TABLET PO PRN ×2 (09:27)
[2019-02-22] MEDS ORDERED: DIPHENHYDRAMINE HCL 50 MG/ML VIAL IV PRN (09:27)
[2019-02-22] MEDS ORDERED: MEPERIDINE HCL/PF INJ 25 MG/1 ML DISP.SYRIN IV PRN (09:27)
[2019-02-22] MEDS ORDERED: ONDANSETRON HCL INJ/PF 4 MG/2 ML SDV IV PRN ×2 (09:27→10:36)
[2019-02-22] MEDS ORDERED: MORPHINE SULFATE 10 MG/ML INJ IV PRN ×2 (09:27→10:36)
[2019-02-22] MEDS ORDERED: CEFAZOLIN INJ 1 GM VIAL ONE (09:30)
[2019-02-22] MEDS ORDERED: SUCCINYLCHOLINE CHLORIDE INJ 200 MG/10 ML VIAL ONE (09:42)
[2019-02-22] MEDS ORDERED: ROCURONIUM BROMIDE INJ 50 MG/5 ML VIAL IV ONE (09:42)
[2019-02-22] MEDS ORDERED: POTASSI CL 20 MEQ/D5-1/2NS 1L 1,000 ML IV PRN (10:36)
[2019-02-22] MEDS ORDERED: KETOROLAC TROMETHAMINE INJ/PF 30 MG/1 ML SDV IV SCH (10:45)
--- NOTE | 2019-02-22 10:52 | Operative Report ---
Nonrecallable Operative Report DATE OF SURGERY: 02/22/19 PREOPERATIVE DIAGNOSIS: hiatal hernia POSTOPERATIVE DIAGNOSIS: hiatal hernia OPERATION: lap repair of hiatal hernia, jossy fundoplication SURGEON: TRISTAN ABRAHAM 1ST [employer]ICAL DESIGNER: MYA MARTINEZ ANESTHESIA: GA TISSUE REMOVED OR ALTERED: none COMPLICATIONS: none ESTIMATED BLOOD LOSS: 10cc. INTRAOPERATIVE FINDINGS: large hiatal hernia. PROCEDURE: Patient was brought to the operating when awake alert stable condition placed in the operating table in supine position induced under general anesthesia intubated the abdomen was prepped and draped in usual sterile manner for the procedure. After appropriate timeout and site verification the varies needle was placed into the umbilicus and the abdomen was insufflated with 6 L of CO2 gas. An infraumbilical 10 mm incision was made with a 15 blade and a 10 mm port was placed in the abdominal cavity intra-abdominal visualization revealed no evidence of a varies needle or trocar injury to epigastric ports were placed under direct vision a 5 and a 12 a right and left upper quadrant 5 mm port was also placed under direct vision. Upon initial visualization the stomach was seen entering the diaphragmatic hiatus about two thirds of the stomach was trapped up in the posterior mediastinum We began our dissection of the stomach gastrocolic ligament along the mid greater curvature and continue that up along the greater curvature by the fundus to the angle of Hiss by dividing the short gastric vessels with the LigaSure device We then excised the hernia sac from the undersurface of the diaphragm and the sylvia bilaterally using the LigaSure device and we remove the sac. We were then able to reduce the stomach and mobilized the esophagus up into the posterior mediastinum and were able to bring the esophagus back down into the abdominal cavity about 6 cm of distal esophagus was allowed to drop easily into the abdominal cavity We then closed the hiatus posteriorly around the esophagus with approximately 4 [id number] placed 0 Surgidac sutures. Around the f 58 [place] bougie dilator We then passed the fundus posteriorly around the esophagus and fixed it to itself anteriorly and the esophageal wall with 3 stitches of 0 Surgidac suture placed there with a 58 [place] bougie dilator in the stomach. This created a floppy Jossy wrap was approximately 2-1/2 cm long. Once we were satisfied with good hemostasis we reduce the pneumoperitoneum closed the fascial defect with 0 Vicryl and closed all skin incisions with 4-0 Biosyn suture. Mya PUGH was present for the entire operation for help with wound retraction wound closure. Estimated blood loss was approximately 25 cc sponge needle counts were correct x2 the patient was awakened in the operating room extubated transferred recovery in stable condition no complications
[2019-02-22] MEDS: HEPARIN SOD (PORCINE) 5,000 UNIT/ML 1 ML VIAL SUBCUT SCH ×2 (13:40→21:49)
[2019-02-22] MEDS ORDERED: FAMOTIDINE INJ/PF 20 MG/2 ML SDV IV SCH (22:00)
[2019-02-23] MEDS ORDERED: KETOROLAC TROMETHAMINE INJ/PF 30 MG/1 ML SDV IV PRN (02:30)
[2019-02-23] MEDS: HEPARIN SOD (PORCINE) 5,000 UNIT/ML 1 ML VIAL SUBCUT SCH (05:44)
[2019-02-23 07:04] LABS: ABSOLUTE BASOPHILS # (AUTO) 0.1 10^3/uL (0.0-0.2); ABSOLUTE MONOCYTES (AUTO) 0.7 10^3/uL (0.1-1.4); ABSOLUTE NEUT (AUTO) 5.8 10^3/uL (1.7-8.2); BASOPHILS % (AUTO) 0.8 % (0-2); EOSINOPHILS % (AUTO) 0.1 % (0-6); HEMATOCRIT 39.6 % (36.0-47.0); HEMOGLOBIN 13.3 g/dL (12.0-15.5); LYMPHOCYTES % (AUTO) 13.7 % (13-45); MEAN CORPUSCULAR HGB CONC 33.7 g/dL (32.0-36.0); MEAN CORPUSCULAR VOLUME 89 fl (80-97); MONOCYTES % (AUTO) 8.7 % (3-13); PLATELET COUNT 306 10^3/uL (150-450); RED BLOOD COUNT 4.45 10^6/uL (3.72-5.28); SEGMENTED NEUTROPHILS % (AUTO) 76.7 % (42-78); TOTAL CELLS COUNTED % (AUTO) 100 %; WHITE BLOOD COUNT 7.5 10^3/uL (4.0-10.5)
[2019-02-23 07:23] LABS: ANION GAP 7 (5-19); BLOOD UREA NITROGEN 15 mg/dL (7-20); CALCIUM 9.7 mg/dL (8.4-10.2); CARBON DIOXIDE 27 mmol/L (22-30); CHLORIDE 104 mmol/L (98-107); GLUCOSE 107 mg/dL (75-110); POTASSIUM 4.1 mmol/L (3.6-5.0)
--- NOTE | 2019-02-23 08:03 | PDOC DISCHARGE SUMMARY ---
General - Admit/Disc Date/PCP Admission Date/Primary Care Provider: 02/22/19 15:47 JIM LEUNG NP Discharge Date: 02/23/19 - Additional Information Resuscitation Status: Full Code Discharge Diet: Full Liquids Discharge Activity: Activity As Tolerated, No Lifting Over 10 Pounds Home Medications: Bupropion HCl [Wellbutrin Xl 300mg 24hr Tablet] 1 tab PO DAILY 10/11/16 Desvenlafaxine Succinate [Pristiq ER] 1 - 2 tab PO QHS PRN 10/11/16 Gr Ricky-Orc/Sw Kristi/Sharon/Willy/Nathaniel [Oralair 300 Ir Sublingual Tab] 1 each SL ASDIR PRN 10/11/16 Levocetirizine Dihydrochloride [Xyzal 5 mg Tablet] 5 mg PO DAILY 10/11/16 Lansoprazole 15 mg PO DAILY 02/22/19 History of Present Illness History of Present Illness: KIKO OCHOA is a 64 year old female Hospital Course Hospital Course: This catheter was admitted on the day of admission for elective repair of her hiatal hernia and laparoscopic Jossy fundoplication. She had a large hiatal hernia with Donovan erosions She underwent the procedure tolerated well and had a routine benign postoperative course On postop day 1 she was tolerating full liquid diet had minimal amount of pain so wounds were clean and dry and she is ready for discharge home today She is instructed to remain on a full liquid diet for the next week and then slowly advance her to a soft diet she will be given an appointment for follow-up with me in surgery clinic 10 to 14 days She will be given Toradol 10 mg p.o. every 8 hours as needed pain Physical Exam Vital Signs: Temp Pulse Resp BP Pulse Ox 97.8 F 78 18 130/58 H 97 02/23/19 07:07 02/23/19 07:07 02/23/19 07:07 02/23/19 07:07 02/23/19 07:07 Intake & Output 02/22/19 02/23/19 02/24/19 06:59 06:59 06:59 Intake Total 1780 Output Total 1310 Balance 470 Weight 86 kg General appearance: PRESENT: no acute distress Head exam: PRESENT: normocephalic Eye exam: PRESENT: EOMI Mouth exam: PRESENT: moist Neck exam: PRESENT: full ROM Respiratory exam: PRESENT: clear to auscultation new Cardiovascular exam: PRESENT: RRR Pulses: PRESENT: +2 pedal pulses bilateral Vascular exam: PRESENT: normal capillary refill GI/Abdominal exam: PRESENT: soft Rectal exam: PRESENT: deferred Extremities exam: PRESENT: full ROM Musculoskeletal exam: PRESENT: full ROM Neurological exam: PRESENT: alert, awake, oriented to person, oriented to place Psychiatric exam: PRESENT: appropriate affect Skin exam: PRESENT: dry Results Laboratory Results: 02/23/19 06:32 02/23/19 06:32 02/22/19 02/23/19 02/23/19 09:09 06:32 06:32 WBC 7.5 RBC 4.45 Hgb 13.3 Hct 39.6 MCV 89 MCH 30.0 MCHC 33.7 RDW 15.0 H Plt Count 306 Seg Neutrophils % 76.7 Sodium 138.2 Potassium 4.1 Chloride 104 Carbon Dioxide 27 Anion Gap 7 BUN 15 Creatinine 1.03 Est GFR ( Amer) > 60 Glucose 107 Calcium 9.7 Blood Type O POSITIVE Antibody Screen NEGATIVE Qualifiers - * PATIENT BEING DISCHARGED WITH ANY OF THE FOLLOWING DIAGNOSIS: No VTE patient discharged on overlapping Therapy?: No Reason(s) for not prescribing Overlap Therapy:: Not indicated Reason(s) for not prescribing Anti-thrombolytic therapy:: Not indicated Reason(s) for not prescribing Anti-coagulation therapy:: Not indicated Reason(s) for not prescribing Statins therapy:: Not indicated Reason(s) for not prescribing Aspirin therapy:: Not indicated Reason(s) for not prescribing Statin therapy:: Not indicated Reason(s) for not prescribing ACEI/ARBS:: Not indicated Acute Heart Failure - Is this a Heart Failure Patient?: No
[2019-02-23 08:30] VITALS: BP 139/60
== END 2019-02-23 09:55 | disposition home or self-care (01) ==
LOC: OROUT 07:47 → EDSTATUS 10:00 → OROUT 12:30 → 2S 12:30
PROVIDERS: ADMIT Surgery; ATTEND Surgery
PROC: 0DV44ZZ Restriction of Esophagogastric Junction, Percutaneous Endoscopic Approach (ICD-10-PCS; 2019-02-22)
PROC: 0BQT4ZZ Repair Diaphragm, Percutaneous Endoscopic Approach (ICD-10-PCS; principal; 2019-02-22 10:00)
DX: K44.9 Diaphragmatic hernia without obstruction or gangrene (principal); K25.9 Gastric ulcer, unspecified as acute or chronic, without hemorrhage or perforation; K21.9 Gastro-esophageal reflux disease without esophagitis; G80.9 Cerebral palsy, unspecified; Z79.899 Other long term (current) drug therapy; Z80.0 Family history of malignant neoplasm of digestive organs
CPT/HCPCS: 93005; 86900; 86901; 36415 ×3; 86850; 85025 ×2; 80048 ×2; 94799; 93010; 00790; 43281; J2250; J3490 ×2; J1644 ×2; J0690 ×2; J1100; J1885 ×2; J2765; J2270; J1170; J0330; J2405; J2704; S0028; 790; J7060; Q9968

== ENCOUNTER → 2019-06-07 | Outpatient (CLI) | payer BC ==
--- NOTE | 2019-06-07 09:11 | WOMENS IMAGING REPORT ---
EXAM DESCRIPTION: 3D SCREENING MAMMO BILAT COMPLETED DATE/TIME: 06/07/2019 7:31 am REASON FOR STUDY: BILATERAL SCREENING Z12.61 Z12.31 ENCNTR SCREEN MAMMOGRAM FOR MALIGNANT NEOPLASM OF PRIYANKA COMPARISON: Multiple since 2007 EXAM PARAMETERS: Views: Standard craniocaudal and mediolateral oblique views of each breast recorded using digital acquisition and breast tomosynthesis. Read with the assistance of CAD. .[facility] - [employer] Version 9.2 LIMITATIONS: None. FINDINGS: No suspicious masses, suspicious calcifications or architectural distortion. No areas of c oncern. IMPRESSION: NEGATIVE MAMMOGRAM. BIRADS 1. BREAST DENSITY: c. The breasts are heterogeneously dense, which may obscure small masses. BIRAD: ASSESSMENT: 1 NEGATIVE RECOMMENDATION: ROUTINE SCREENING Please continue yearly bilateral screening mammography/tomosynthesis in May 2020 COMMENT: The patient has been notified of the results by letter per SA requirements. Additional no tification policies are in place for contacting patient with suspicious or incomplete findings. Quality ID #[id number]: The [employer] recommends an annual screening mammogram for women aged 40 years or over. This facility utilizes a reminder system to ensure that all patients receive reminder letters, and/or direct phone calls for appointments. This includes reminders for routine scr eening mammograms, diagnostic mammograms, or other Breast Imaging Interventions when appropriate. Th is patient will be placed in the appropriate reminder system. TECHNICAL DOCUMENTATION: FINDING NUMBER: (1) ASSESSMENT: (1) JOB ID: [id number] [employer]- All Rights Reserved Reading location - IP/workstation name: [email or web address]
== END ==
LOC: WI 07:20
PROVIDERS: ATTEND Nurse Practitioner
DX: Z12.31 Encounter for screening mammogram for malignant neoplasm of breast (principal)
CPT/HCPCS: 77063; 77067